=== PATIENT | female | born 2000 | race African-American/Black ===

== ENCOUNTER 2024-11-11 15:51 | Inpatient (IN) | payer OTHER ==
[~2024-11-11 15:51] MED LIST: Bupivacaine 0.25% HCL 30 ML VIAL ONE; Bupivacaine HCl 0.5%/Epinephrine 1:200,000/PF 30 ml Vial ONE
[2024-11-11] MEDS ORDERED: hydrALAZINE 20 MG/ML VIAL SLOW IVP PRN (20:13)
[2024-11-11] MEDS ORDERED: Tranexamic Acid 1,000 MG/10 ML VIAL IVP PRN (20:13)
[2024-11-11] MEDS ORDERED: Lidocaine 1% (PF) 30 ML VIAL SC PRN (20:13)
[2024-11-11] MEDS ORDERED: Ondansetron PF 4 MG/2 ML Vial IVP PRN (20:13)
[2024-11-11] MEDS ORDERED: Ibuprofen 800 MG TAB PO PRN (20:13)
[2024-11-11] MEDS ORDERED: Promethazine HCl 25 MG/ML VIAL IM PRN (20:13)
[2024-11-11] MEDS ORDERED: Oxytocin 30 units/NS 500 ML 500 ML IV SCH (21:00)
[2024-11-11 21:17] LABS: Hematocrit 33.1 % (34.9-44.5); Hemoglobin 11.2 g/dL (12.0-15.5); Mean Corpuscular HGB CONC 33.8 g/dL (32.0-36.0); Mean Corpuscular Hemoglobin 29.8 pg (27.0-33.0); Mean Platelet Volume 10.4 fL (7.4-10.4); Platelet Count 199 10x3/uL (150-450); RBC Distribution Width 13.4 % (11.5-14.5); Red Blood Cell (RBC) Count 3.76 10x6/uL (3.90-5.03); White Blood Cell (WBC) Count 13.6 10x3/uL (3.5-10.5)
[2024-11-11 21:19] VITALS: BMI 39.9
[2024-11-11] MEDS: Misoprostol 100 MCG TAB VAG SCH (21:30)
[2024-11-11 22:34] LABS: Syphilis Antibody Nonreactive (Nonreactive); Syphilis Antibody Index 0.07 S/CO (<1.00 Non-Reactive)
[2024-11-11 22:46] LABS: HBsAg Index 0.41 S/CO (0-0.99); Hep B Surf Ag - L&D Non-Reactive S/CO (NonReactive)
[2024-11-12] MEDS: Misoprostol 100 MCG TAB PO SCH ×2 (03:35→19:53)
[2024-11-12] MEDS: Oxytocin 30 units/NS 500 ML 500 ML IV SCH (11:09)
[2024-11-12 12:02] LABS: Creatinine, Urine 121.48 mg/dL (47-110)
[2024-11-12] MEDS: fentaNYL/Ropivacaine Epidural 100 ML ONE (13:12)
[2024-11-12 14:57] LABS: ALT (SGPT) 21 U/L (8-55); AST (SGOT) 22 U/L (5-34); Albumin 2.9 g/dL (3.5-5.0); Alkaline Phosphatase 185 U/L (40-110); Anion Gap 14 mmol/L (10-20); BUN (Urea Nitrogen) 8 mg/dL (7.0-18.7); Bilirubin, Total 0.3 mg/dL (0.2-1.2); Calc. Creatinine Clearance 202 mL/min (70-130); Calcium 9.3 mg/dL (7.8-10.44); Carbon Dioxide 21 mmol/L (22-29); Chloride 106 mmol/L (98-107); Estimated GFR 115; Globulin 3.9 g/dL (2.4-3.5); Glucose 82 mg/dL (70-105); Potassium 3.7 mmol/L (3.5-5.1); Protein, Total 6.8 g/dL (6.0-8.3); Sodium 137 mmol/L (136-145)
[2024-11-12] MEDS ORDERED: Lactated Ringer's 500 ML IV PRN (18:31)
[2024-11-12] MEDS ORDERED: diphenhydrAMINE 50 MG/ML VIAL IVP PRN (18:31)
[2024-11-12] MEDS ORDERED: Promethazine HCl 25 MG/ML VIAL IM PRN (18:31)
[2024-11-12] MEDS ORDERED: ePHEDrine Sulfate 50 MG/10 ML VIAL SLOW IVP PRN (18:31)
[2024-11-12] MEDS ORDERED: Acetaminophen 325 MG TAB PO PRN (18:31)
[2024-11-12] MEDS ORDERED: Naloxone HCl 0.4 mg/ml Vial IVP PRN ×2 (18:31)
[2024-11-12] MEDS ORDERED: Moisturizing Cream (Eucerin) 113 GM JAR TOP PRN (18:31)
[2024-11-12] MEDS ORDERED: Ondansetron PF 4 MG/2 ML Vial IVP PRN (18:31)
[2024-11-12] MEDS ORDERED: Communication Order-Pharmacy FS SCH (18:45)
[2024-11-12] MEDS: Lactated Ringer's 1,000 ML IV SCH (19:27)
[2024-11-12] MEDS: fentaNYL 2 mcg/Ropivacaine 0.2% Epidural 100 ML CADD EPIDURAL SCH (23:08)
[2024-11-13] MEDS: Methylergonovine 0.2 MG/ML VIAL IM PRN (08:19)
[2024-11-13] MEDS: Misoprostol 200 MCG TAB PR PRN (08:20)
[2024-11-13] MEDS ORDERED: Milk Of Magnesia 30 ML UDCUP PO PRN (08:28)
[2024-11-13] MEDS ORDERED: hydrALAZINE 20 MG/ML VIAL SLOW IVP PRN (08:28)
[2024-11-13] MEDS ORDERED: Bisacodyl 10 MG SUPP PR PRN (08:28)
[2024-11-13] MEDS ORDERED: Lanolin Ointment 7 GM TUBE TOP PRN (08:45)
[2024-11-13] MEDS ORDERED: diphenhydrAMINE 25 MG CAP PO PRN (08:45)
[2024-11-13] MEDS ORDERED: Preparation H Ointment 28 GM TUBE PR PRN (08:45)
[2024-11-13] MEDS ORDERED: Benzocaine-Menthol 82.5 ML CAN TOP PRN (08:45)
[2024-11-13] MEDS: Lidocaine 1% (PF) 30 ML VIAL ONE (10:23)
[2024-11-13] MEDS: Ferrous Sulfate 325 MG TAB PO SCH (10:32)
[2024-11-13] MEDS: Docusate 100 MG CAP PO SCH (11:08)
[2024-11-13] MEDS: Ibuprofen 800 MG TAB PO SCH (14:21)
[2024-11-14 04:06] LABS: #Basophils 0.05 10x3/uL (0.0-0.2); #Monocytes 1.71 10x3/uL (0.0-1.1); #Neutrophils 18.32 10x3/uL (1.5-8.4); %Basophils 0.2 % (0.0-2.0); %Eosinophils 1.2 % (0.0-6.0); %Lymphocytes 14.9 % (18.0-47.0); %Monocytes 7.1 % (0.0-10.0); %Neutrophils 75.8 % (40.0-75.0); Hematocrit 25.8 % (34.9-44.5); Hemoglobin 8.4 g/dL (12.0-15.5); Mean Corpuscular HGB CONC 32.6 g/dL (32.0-36.0); Mean Corpuscular Hemoglobin 29.4 pg (27.0-33.0); Mean Corpuscular Volume 90.2 fL (81.6-98.3); Mean Platelet Volume 10.5 fL (7.4-10.4); Platelet Count 161 10x3/uL (150-450); RBC Distribution Width 13.8 % (11.5-14.5); Red Blood Cell (RBC) Count 2.86 10x6/uL (3.90-5.03); White Blood Cell (WBC) Count 24.2 10x3/uL (3.5-10.5)
[2024-11-14] MEDS: Boostrix 0.5 ML (Tdap) VIAL (>/=7 yrs of age) IM ONE (10:46)
[2024-11-15 05:44] LABS: Hematocrit 25.2 % (34.9-44.5); Hemoglobin 8.1 g/dL (12.0-15.5); Mean Corpuscular HGB CONC 32.1 g/dL (32.0-36.0); Mean Corpuscular Hemoglobin 28.9 pg (27.0-33.0); Mean Platelet Volume 10.3 fL (7.4-10.4); Platelet Count 164 10x3/uL (150-450); RBC Distribution Width 13.6 % (11.5-14.5); White Blood Cell (WBC) Count 13.9 10x3/uL (3.5-10.5)
[2024-11-15 07:26] VITALS: BP 125/74; TEMP 98.5
== END 2024-11-15 13:30 | disposition home or self-care (01) | DRG 807 ==
LOC: CSHLD 19:57 → CSHPP 11-13 10:43
PROVIDERS: ADMIT Family Medicine; ATTEND Family Medicine
PROC: 10H07YZ Insertion of Other Device into Products of Conception, Via Natural or Artificial Opening (ICD-10-PCS; principal; 2024-11-12)
PROC: 10E0XZZ Delivery of Products of Conception, External Approach (ICD-10-PCS; 2024-11-13)
PROC: 0KQM0ZZ Repair Perineum Muscle, Open Approach (ICD-10-PCS; 2024-11-13)
DX: O99.214 Obesity complicating childbirth (principal); Z37.0 Single live birth; E66.813 Obesity, class 3; O99.02 Anemia complicating childbirth; Z3A.39 39 weeks gestation of pregnancy; Z88.0 Allergy status to penicillin; O99.52 Diseases of the respiratory system complicating childbirth; J45.909 Unspecified asthma, uncomplicated; O70.1 Second degree perineal laceration during delivery; O99.344 Other mental disorders complicating childbirth; F32.A Depression, unspecified
CPT/HCPCS: 36415; 80053; 82570; 84156; 85025; 85027; 86780; 86850; 86900; 86901; 87340; J0665; J2210; J2590; J7120